=== PATIENT | female | born 1960 | race Caucasian/White ===

== ENCOUNTER → 2018-06-22 | Outpatient (CLI) | payer OTHER | LOC: M.RAD 06-18 16:00 | DX: Z12.31 Encounter for screening mammogram for malignant neoplasm of breast (principal) ==

== ENCOUNTER → 2020-08-09 | Outpatient (CLI) | payer OTHER | LOC: M.RAD 07:21 | PROVIDERS: ATTEND Hospitalist | DX: Z12.31 Encounter for screening mammogram for malignant neoplasm of breast (principal) ==

== ENCOUNTER 2021-03-05 07:17 | Observation (INO) | payer OTHER ==
[~2021-03-05] VITALS: Ht 165.1 cm; Wt 137.9 kg
[2021-03-05] VITALS (7 sets, daily range): BP systolic 107–194; BP diastolic 42–135
[2021-03-05] MEDS ORDERED: CHLORTHALIDONE25 MG PO (07:31)
[2021-03-05] MEDS ORDERED: ASA81BEC PO (07:31)
[2021-03-05] MEDS ORDERED: CARVEDILOL12.5 MG PO (07:31)
[2021-03-05] MEDS ORDERED: ALPRAZOLAM XR3 MG PO (07:31)
[2021-03-05] MEDS ORDERED: FLEXERIL PO (07:32)
[2021-03-05] MEDS ORDERED: PLAVIX 75 MG TA75 MG PO (07:32)
[2021-03-05] MEDS ORDERED: SUPER THERAVIT1 EACH PO (07:33)
[2021-03-05] MEDS ORDERED: METFORMIN HCL500 M3 PO (07:33)
[2021-03-05] MEDS ORDERED: ESCITALOPRA5 MG/5 ML PO (07:33)
[2021-03-05] MEDS ORDERED: LEVO-T75 MCG PO (07:33)
[2021-03-05] MEDS ORDERED: NITROSTAT0.4 M1 SUBLING (07:34)
[2021-03-05] MEDS ORDERED: PRAVACHOL 20 MG20 M1 PO ×2 (07:34→16:55)
[2021-03-05] MEDS ORDERED: PROTONIX40 M2 PO (07:34)
[2021-03-05 07:47] LABS: ABSOLUTE BASOPHILS 0.1 thou/uL (0.0-0.2); ABSOLUTE EOSINOPHILS 0.1 thou/uL (0.0-0.7); ABSOLUTE LYMPHOCYTES 1.8 thou/uL (0.8-5.3); ABSOLUTE MONOCYTES 0.4 thou/uL (0.0-1.2); ABSOLUTE NEUTROPHILS 3.5 thou/uL (1.6-8.1); BASOPHILS 1.2 %; EOSINOPHILS 1.1 %; HEMATOCRIT 40.4 % (37.0-47.0); HEMOGLOBIN 13.2 gm/dL (12.0-15.0); LYMPHOCYTES 31.3 %; MCH 27.9 pg (26.0-34.0); MCHC 32.7 g/dL (28.0-37.0); MCV 85.4 fL (80.0-100.0); MPV 8.3 fl. (7.2-11.1); NUCLEATED RBCS 0 /100WBC; PLATELET COUNT* 243 thou/uL (150-400); POLYS 60.4 %; RBC 4.72 mil/uL (4.20-5.00); RDW-CV 13.9 % (10.5-14.5); WBC 5.8 thou/uL (4.0-11.0)
[2021-03-05 07:52] LABS: CALCIUM 8.6 mg/dL (8.5-10.1); POTASSIUM 3.3 mmol/L (3.5-5.1)
[2021-03-05 08:01] LABS: ALBUMIN 3.7 g/dL (3.4-5.0); MAGNESIUM 1.4 mg/dL (1.8-2.4); TOTAL BILIRUBIN 0.6 mg/dL (<0.1-1.0)
--- NOTE | 2021-03-05 10:37 | EKG ---
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[place] : 1960 Requested By: Huan José Order Number: [id number] MD: Raul Blandon Measurements Intervals [place] Rate: 75 P: 29 AK: 146 QRS: -32 QRSD: 92 T: 12 QT: 387 QTc: 433 Interpretive Statements Sinus rhythm Atrial premature complex Left axis deviation Low voltage, precordial leads Borderline T abnormalities, inferior leads No previous ECG available for comparison Electronically Signed On 03-05-2021 10:37:43 CDT by Raul Blandon [email or web address] <ELECTRONICALLY SIGNED> By: Raul Blandon MD, FACC 03/05/21 1037 7 7 Raul Blandon MD, [facility] /EPI
--- NOTE | 2021-03-05 10:40 | EKG ---
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 <ELECTRONICALLY SIGNED> By: Raul Blandon MD, FACC 03/05/21 1040 0937 Raul Blandon MD, FACC /EPI
[2021-03-05 13:32] LABS: CHOLESTEROL 157 mg/dL (<200); HDL CHOLESTEROL 39 mg/dL (>40); LDL CHOLESTEROL 68 mg/dL (<100); SERUM ASSESSMENT Clear; TRIGLYCERIDE 251 mg/dL (<150); VLDL 50 mg/dL (<40)
--- NOTE | 2021-03-05 15:18 | 2DMMODE ---
[place] [address] 2 D/M-MODE ECHOCARDIOGRAM Name: ELLA SANTIZO Room: [address] Oren#: [id number] Admission: 03/05/21 Attend Phys: Bruce Garcia Discharge: Date of : 62 Date of Service: 03/05/21 1517 Report #: [id number] THIS REPORT FOR: cc: Anuja Tidwell MD, Jayne Lora MD Holkins,Raul Benedict MD [facility] ~ APPROVED REPORT Study performed: 03/05/2021 14:33:15 EXAM: Comprehensive 2D, Doppler, and color-flow Echocardiogram Patient Location: In-Patient Room #: er Status: routine BSA: 2.35 HR: 78 bpm BP: 129/62 mmHg Rhythm: NSR Other Information Study Quality: Good Indications CAD 2D Dimensions IVSd: 11.65 (7-11mm) LVOT Diam: 19.14 (18-24mm) LVDd: 39.70 mm PWd: 12.03 (7-11mm) Ascending Ao: 34.95 (22-36mm) LVDs: 23.26 (25-40mm) Aortic Root: 30.91 mm Volumes Left Atrial Volume (Systole) LA ESV Index: 14.60 mL/m2 Aortic Valve AoV Peak Ishmael.: 1.55 m/s AO Peak Gr.: 9.64 mmHg LVOT Max P.56 mmHg AO Mean Gr.: 5.80 mmHg LVOT Mean P.63 mmHg LVOT Max V: 1.18 m/s AO V2 VTI: 30.09 cm LVOT Mean V: 0.74 m/s GUZMAN (VTI): 2.24 cm2 LVOT V1 VTI: 23.46 [place] [address] 2 D/M-MODE ECHOCARDIOGRAM Name: ELLA SANTIZO Room: [address] M.RMisael#: [id number] Admission: 03/05/21 Attend Phys: Bruce Garcia Discharge: Date of : 62 Date of Service: 03/05/21 1517 Report #: [id number] Mitral Valve E/A Ratio: 0.70 MV Decel. Time: 316.90 ms MV E Max Ishmael.: 0.50 m/s MV PHT: 91.90 ms MVA (PHT): 2.39 cm2 TDI E/Lateral E': 5.00 E/Medial E': 5.56 Medial E' Ishmael.: 0.09 m/s Lateral E' Ishmael.: 0.10 m/s Pulmonary Valve PV Peak Ishmael.: 1.03 m/s PV Peak Gr.: 4.27 mmHg Tricuspid Valve RAP Estimate: 5.00 mmHg TR Peak Gr.: 23.66 mmHg RVSP: 28.00 mmHg PA Pressure: 28.00 mmHg Left Ventricle The left ventricle is normal size. There is normal LV segmental wall motion. Mild concentric left ventricular hypertrophy. Left ventricular systolic function is normal. The left ventricular ejection fraction is within the normal range. LVEF is 60-65%. Grade I - abnormal relaxation pattern. Right Ventricle The right ventricle is normal size. The right ventricular systolic function is normal. Atria The left atrium size is normal. The right atrium size is normal. Aortic Valve The aortic valve is normal in structure. No aortic regurgitation is present. There is no aortic valvular stenosis. Mitral Valve The mitral valve is normal in structure. There is no mitral valve regurgitation noted. No evidence of mitral valve stenosis. Tricuspid Valve The tricuspid valve is normal in structure. Trace tricuspid regurgitation. [place] [address] 2 D/M-MODE ECHOCARDIOGRAM Name: ELLA SANTIZO Room: [address] M.R.#: [id number] Admission: 03/05/21 Attend Phys: Bruce Garcia Discharge: Date of : 62 Date of Service: 03/05/21 1517 Report #: [id number] Pulmonic Valve The pulmonary valve is normal in structure. There is no pulmonic valvular regurgitation. Great Vessels The aortic root is normal in size. IVC is not well visualized. Pericardium There is no pericardial effusion. <Conclusion> The left ventricle is normal size. Mild concentric left ventricular hypertrophy. Left ventricular systolic function is normal. The left ventricular ejection fraction is within the normal range. LVEF is 60-65%. Grade I - abnormal relaxation pattern. The right ventricle is normal size. The left atrium size is normal. The aortic valve is normal in structure. The mitral valve is normal in structure. The tricuspid valve is normal in structure. There is no pericardial effusion. There is normal LV segmental wall motion. <ELECTRONICALLY SIGNED> By: Raul Blandon MD, FACC 03/05/21 1517 151 151 Raul Blandon MD, FACC /INF
[2021-03-05] MEDS ORDERED: VITAMIN D3-ALO1 EACH PO (16:52)
[2021-03-05] MEDS ORDERED: CHOLEST OFF450 MG PO (16:53)
[2021-03-06 04:03] LABS: ABSOLUTE EOSINOPHILS 0.1 thou/uL (0.0-0.7); ABSOLUTE LYMPHOCYTES 3.2 thou/uL (0.8-5.3); ABSOLUTE MONOCYTES 0.4 thou/uL (0.0-1.2); ABSOLUTE NEUTROPHILS 2.8 thou/uL (1.6-8.1); BASOPHILS 0.6 %; EOSINOPHILS 1.1 %; HEMATOCRIT 40.9 % (37.0-47.0); HEMOGLOBIN 13.3 gm/dL (12.0-15.0); LYMPHOCYTES 49.5 %; MCH 27.9 pg (26.0-34.0); MCHC 32.6 g/dL (28.0-37.0); MCV 85.6 fL (80.0-100.0); MONOCYTES 6.4 %; MPV 8.3 fl. (7.2-11.1); NUCLEATED RBCS 0 /100WBC; PLATELET COUNT* 261 thou/uL (150-400); POLYS 42.4 %; RBC 4.78 mil/uL (4.20-5.00); RDW-CV 14.3 % (10.5-14.5); WBC 6.6 thou/uL (4.0-11.0)
[2021-03-06 04:12] VITALS: BP 121/68
[2021-03-06 04:14] LABS: POTASSIUM 3.1 mmol/L (3.5-5.1)
[2021-03-06 04:17] LABS: CREATININE 0.9 mg/dL (0.6-1.3)
[2021-03-06 09:02] VITALS: BP 136/63
--- NOTE | 2021-03-06 12:28 | EKG ---
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1960 Requested By: Bruce Garcia Order Number: [id number] MD: Raul Blandon Measurements Intervals [place] Rate: 77 P: 44 [place]: 145 QRS: 1 QRSD: 89 T: 7 QT: 407 QTc: 461 Interpretive Statements Sinus rhythm Low voltage, precordial leads RSR' in V1 or V2, right VCD Borderline T abnormalities, anterior leads Baseline wander in lead(s) V3 Compared to ECG 03/05/2021 09:37:32 RSR' in V1 or V2 now present T-wave abnormality still present Electronically Signed On 03-06-2021 12:28:30 CDT by Raul Blandon [email or web address] <ELECTRONICALLY SIGNED> By: Raul Blandon MD, [facility] 03/06/21 1228 1010 1010 Raul Blandon MD, [facility] /EPI
[2021-03-06 13:00] VITALS: BP 144/48
[2021-03-06 13:06] VITALS: BP 144/48
== END 2021-03-06 13:32 | disposition home or self-care (01) ==
LOC: M.ERS 07:17 → M.TBA-ER 10:57 → M.2W 16:17
PROVIDERS: Emergency Medicine Emergency Medical Services; Registered Nurse; ADMIT Internal Medicine; ATTEND Internal Medicine
DX: R00.0 Tachycardia, unspecified (principal); Z20.822 Contact with and (suspected) exposure to COVID-19; R06.00 Dyspnea, unspecified; E87.6 Hypokalemia; E87.1 Hypo-osmolality and hyponatremia; E87.8 Other disorders of electrolyte and fluid balance, not elsewhere classified; E83.42 Hypomagnesemia; E11.65 Type 2 diabetes mellitus with hyperglycemia; I25.10 Atherosclerotic heart disease of native coronary artery without angina pectoris; I10 Essential (primary) hypertension; E78.5 Hyperlipidemia, unspecified; E78.00 Pure hypercholesterolemia, unspecified; I25.2 Old myocardial infarction; R00.2 Palpitations; E66.9 Obesity, unspecified; Z68.45 Body mass index [BMI] 70 or greater, adult; Z79.899 Other long term (current) drug therapy

== ENCOUNTER → 2021-03-21 | Outpatient (CLI) | payer OTHER ==
[~2021-03-21] MED LIST: ALPRAZOLAM XR3 MG PO; ASA81BEC PO; CARVEDILOL12.5 MG PO; CHLORTHALIDONE25 MG PO; CHOLEST OFF450 MG PO; ESCITALOPRA5 MG/5 ML PO; FLEXERIL PO; LEVO-T75 MCG PO; METFORMIN HCL500 M3 PO; NITROSTAT0.4 M1 SUBLING; PLAVIX 75 MG TA75 MG PO; PRAVACHOL 20 MG20 M1 PO; PROTONIX40 M2 PO; SUPER THERAVIT1 EACH PO; VITAMIN D3-ALO1 EACH PO
[2021-03-21 07:53] LABS: ABSOLUTE EOSINOPHILS 0.1 thou/uL (0.0-0.7); ABSOLUTE LYMPHOCYTES 1.8 thou/uL (0.8-5.3); ABSOLUTE MONOCYTES 0.4 thou/uL (0.0-1.2); ABSOLUTE NEUTROPHILS 3.3 thou/uL (1.6-8.1); BASOPHILS 0.9 %; EOSINOPHILS 1.3 %; HEMATOCRIT 40.2 % (37.0-47.0); HEMOGLOBIN 13.2 gm/dL (12.0-15.0); LYMPHOCYTES 31.7 %; MCH 28.3 pg (26.0-34.0); MCHC 32.7 g/dL (28.0-37.0); MCV 86.4 fL (80.0-100.0); MONOCYTES 7.2 %; MPV 8.2 fl. (7.2-11.1); NUCLEATED RBCS 0 /100WBC; PLATELET COUNT* 258 thou/uL (150-400); POLYS 58.9 %; RBC 4.66 mil/uL (4.20-5.00); WBC 5.6 thou/uL (4.0-11.0)
[2021-03-21 08:19] LABS: ALBUMIN 3.7 g/dL (3.4-5.0); ALKALINE PHOSPHATASE 89 U/L (46-116); ANION GAP 12 mmol/L (7-16); BUN 18 mg/dL (7-18); CALCIUM 8.9 mg/dL (8.5-10.1); CHLORIDE 95 mmol/L (98-107); CHOLESTEROL 182 mg/dL (<200); CO2 26 mmol/L (21-32); GLUCOSE 402 mg/dL (70-99); HDL CHOLESTEROL 40 mg/dL (>40); LDL CHOLESTEROL 79 mg/dL (<100); POTASSIUM 3.6 mmol/L (3.5-5.1); SGOT 41 U/L (15-37); SGPT 49 U/L (30-65); SODIUM 133 mmol/L (136-145); TC:HDL 4.6 Ratio (Not establshd); TOTAL BILIRUBIN 0.7 mg/dL (<0.1-1.0); TOTAL PROTEIN 7.3 g/dL (6.4-8.2); TRIGLYCERIDE 315 mg/dL (<150); VLDL 63 mg/dL (<40)
[2021-03-21 08:20] LABS: SERUM ASSESSMENT Clear
[2021-03-21 17:18] LABS: MAGNESIUM 1.6 mg/dL (1.8-2.4)
[2021-03-22 02:06] LABS: GLYCOHEMOGLOBIN (HGB A1C) 13.8 % (4.8-5.6)
== END ==
LOC: M.LAB 07:29
PROVIDERS: ATTEND Specialist
DX: I10 Essential (primary) hypertension (principal); E87.6 Hypokalemia; E11.9 Type 2 diabetes mellitus without complications; E55.9 Vitamin D deficiency, unspecified; E53.8 Deficiency of other specified B group vitamins; R79.0 Abnormal level of blood mineral

== ENCOUNTER → 2021-04-06 | Outpatient (CLI) | payer OTHER ==
[2021-04-06 08:08] LABS: ALBUMIN 3.6 g/dL (3.4-5.0); CALCIUM 8.7 mg/dL (8.5-10.1); TOTAL BILIRUBIN 0.7 mg/dL (<0.1-1.0); TOTAL PROTEIN 7.1 g/dL (6.4-8.2)
== END ==
LOC: M.LAB 07:28
PROVIDERS: ATTEND Specialist
DX: E11.9 Type 2 diabetes mellitus without complications (principal); E87.1 Hypo-osmolality and hyponatremia; E83.42 Hypomagnesemia

== ENCOUNTER 2021-04-22 09:31 | Emergency (ER) | payer OTHER ==
[~2021-04-22] VITALS: Ht 165.1 cm; Wt 131.5 kg
[2021-04-22] MEDS ORDERED: TRULICITY0.75 MG/0. (09:56)
[2021-04-22] MEDS ORDERED: FARXIGA5 MG PO (09:56)
[2021-04-22 11:35] VITALS: BP 144/72
== END 2021-04-22 11:35 | disposition home or self-care (01) ==
LOC: M.ERS 09:31
DX: H53.8 Other visual disturbances (principal); I25.2 Old myocardial infarction; E11.9 Type 2 diabetes mellitus without complications; I10 Essential (primary) hypertension; E78.00 Pure hypercholesterolemia, unspecified; Z90.89 Acquired absence of other organs; Z95.5 Presence of coronary angioplasty implant and graft; Z79.899 Other long term (current) drug therapy; Z79.82 Long term (current) use of aspirin; Z88.0 Allergy status to penicillin; Z88.6 Allergy status to analgesic agent

== ENCOUNTER 2021-06-28 11:21 | Emergency (ER) | payer OTHER ==
[~2021-06-28] VITALS: Ht 165.1 cm; Wt 127.0 kg
[~2021-06-28 11:21] MED LIST changes: +FARXIGA5 MG PO; +TRULICITY0.75 MG/0.
[2021-06-28 12:39] LABS: ABSOLUTE LYMPHOCYTES 1.1 thou/uL (0.8-5.3); ABSOLUTE MONOCYTES 0.4 thou/uL (0.0-1.2); ABSOLUTE NEUTROPHILS 3.4 thou/uL (1.6-8.1); BASOPHILS 0.7 %; EOSINOPHILS 0.2 %; HEMOGLOBIN 13.3 gm/dL (12.0-15.0); LYMPHOCYTES 22.4 %; MCHC 32.4 g/dL (28.0-37.0); MCV 86.4 fL (80.0-100.0); MONOCYTES 8.7 %; MPV 7.9 fl. (7.2-11.1); NUCLEATED RBCS 0 /100WBC; PLATELET COUNT* 262 thou/uL (150-400); RBC 4.74 mil/uL (4.20-5.00); RDW-CV 13.8 % (10.5-14.5)
[2021-06-28 12:50] LABS: INFLUENZA A ANTIGEN Negative (Negative); INFLUENZA B ANTIGEN Negative (Negative)
[2021-06-28 13:43] VITALS: BP 140/60
--- NOTE | 2021-06-28 16:16 | EKG ---
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 : 1960 Requested By: Darryn Morales Order Number: [id number] MD: Raul Blandon Measurements Intervals [place] Rate: 71 P: 22 AK: 148 QRS: -17 QRSD: 104 T: 13 QT: 406 QTc: 442 Interpretive Statements Sinus rhythm Borderline left axis deviation Low voltage, precordial leads Borderline T abnormalities, anterior leads Baseline wander in lead(s) II,aVR,aVF,V6 Compared to ECG 03/06/2021 10:10:36 No significant changes Electronically Signed On 06-28-2021 16:15:48 [email or web address] by Raul Blandon [email or web address] <ELECTRONICALLY SIGNED> By: Raul Blandon MD, [facility] 06/28/21 1615 1137 1137 Raul Blandon MD, [facility] /EPI
[2021-06-28 23:28] LABS: CALCIUM 8.6 mg/dL (8.5-10.1); CREATININE 1.1 mg/dL (0.6-1.3)
[2021-06-28 23:33] LABS: ALBUMIN 3.9 g/dL (3.4-5.0); TOTAL BILIRUBIN 0.3 mg/dL (<0.1-1.0)
== END 2021-06-28 13:44 | disposition home or self-care (01) ==
LOC: M.ERS 11:21
PROVIDERS: Emergency Medicine
DX: U07.1 COVID-19 (principal); I25.2 Old myocardial infarction; E11.9 Type 2 diabetes mellitus without complications; I10 Essential (primary) hypertension; E78.00 Pure hypercholesterolemia, unspecified; Z90.89 Acquired absence of other organs; Z79.82 Long term (current) use of aspirin; Z79.84 Long term (current) use of oral hypoglycemic drugs; Z79.899 Other long term (current) drug therapy; Z79.891 Long term (current) use of opiate analgesic; Z88.0 Allergy status to penicillin; Z88.8 Allergy status to other drugs, medicaments and biological substances

== ENCOUNTER 2021-07-05 14:44 | Inpatient (IN) | payer OTHER ==
[~2021-07-05] VITALS: Ht 165.1 cm; Wt 126.6 kg
[2021-07-05 14:48] VITALS: BP 118/79
[2021-07-05 17:46] LABS: HEMOGLOBIN 14.8 gm/dL (12.0-15.0); MCH 27.9 pg (26.0-34.0); RBC 5.31 mil/uL (4.20-5.00); RDW-CV 13.8 % (10.5-14.5)
[2021-07-05 17:48] LABS: HEMATOCRIT 45.7 % (37.0-47.0); MCHC 32.5 g/dL (28.0-37.0); MPV 8.4 fl. (7.2-11.1); NUCLEATED RBCS 0 /100WBC; WBC 6.3 thou/uL (4.0-11.0)
[2021-07-05 18:14] LABS: ABSOLUTE LYMPHOCYTES 1.3 thou/uL (0.8-5.3); ABSOLUTE MONOCYTES 0.5 thou/uL (0.0-1.2); ABSOLUTE NEUTROPHILS 4.5 thou/uL (1.6-8.1); PLATELET ESTIMATE ADEQUATE
[2021-07-05 18:15] LABS: PLATELET COUNT* 200 thou/uL (150-400)
[2021-07-05 19:28] LABS: CALCIUM 7.7 mg/dL (8.5-10.1); CREATININE 0.9 mg/dL (0.6-1.3)
[2021-07-05 19:30] LABS: POTASSIUM 2.4 mmol/L (3.5-5.1)
[2021-07-05 19:34] LABS: MAGNESIUM 1.5 mg/dL (1.8-2.4); TOTAL BILIRUBIN 0.6 mg/dL (<0.1-1.0); TOTAL PROTEIN 6.7 g/dL (6.4-8.2)
[2021-07-05 23:50] LABS: URINE BILIRUBIN NEGATIVE (Negative); URINE BLOOD NEGATIVE (Negative); URINE CLARITY CLEAR; URINE COLOR YELLOW; URINE GLUCOSE-RANDOM 1+ (Negative); URINE KETONES NEGATIVE (Negative); URINE LEUKOCYTES-REFLEX 1+ (Negative); URINE NITRITE-REFLEX NEGATIVE (Negative); URINE PROTEIN NEGATIVE (Negative); URINE SPECIFIC GRAVITY <= 1.005 (1.005-1.030); URINE UROBILINOGEN 0.2 E.U./dl (0.2-1.0)
[2021-07-06] VITALS (7 sets, daily range): BP systolic 113–219; BP diastolic 71–94
[2021-07-06 00:03] LABS: BACTERIA-REFLEX >30 Many /HPF (None Seen); CASTS None Seen /LPF (None Seen); CRYSTALS None Seen /LPF (None Seen); MUCUS 4-6 Moderate strn/LPF (None Seen); SQUAMOUS 0-3 Few /LPF (0-3); URINE RBC 3-10 Few /HPF (0-2); URINE WBC-REFLEX >25 Many /HPF (0-5)
[2021-07-06 06:57] LABS: POTASSIUM 2.7 mmol/L (3.5-5.1)
--- NOTE | 2021-07-06 09:37 | EKG ---
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 : 1960 Requested By: Mani Rizo Order Number: [id number] MD: Fazal Andersen Measurements Intervals [place] Rate: 80 P: 18 TN: 143 QRS: -24 QRSD: 96 T: 11 QT: 409 QTc: 472 Interpretive Statements Sinus rhythm Borderline left axis deviation Low voltage, precordial leads Abnormal R-wave progression, early transition Compared to ECG 06/28/2021 11:37:45 no change Electronically Signed On 07-06-2021 9:36:55 GRADUATE ADVISOR by Fazal Andersen [email or web address] <ELECTRONICALLY SIGNED> By: Fazal Andersen MD, FAC 07/06/21 0936 1453 1453 Fazal Andersen MD, FAC /EPI
[2021-07-07] VITALS (7 sets, daily range): BP systolic 121–140; BP diastolic 64–77
[2021-07-07 04:02] LABS: ALBUMIN 2.6 g/dL (3.4-5.0); CALCIUM 7.4 mg/dL (8.5-10.1); CREATININE 0.8 mg/dL (0.6-1.3); TOTAL BILIRUBIN 0.4 mg/dL (<0.1-1.0); TOTAL PROTEIN 5.9 g/dL (6.4-8.2)
[2021-07-07] MEDS ORDERED: PREDNISONE 10 M10 MG PO (14:10)
[2021-07-07] MEDS ORDERED: TESSALON PERLE100 MG PO (14:10)
[2021-07-07] MEDS ORDERED: PROAIR HFA8.5 GM INH (14:10)
[2021-07-07] MEDS ORDERED: LEVOFLOXACIN500 MG PO (14:10)
== END 2021-07-07 17:30 | disposition home or self-care (01) | DRG 177 ==
LOC: M.ERS 14:44 → M.TBA-ER 20:59 → M.ORTHSURG 20:59
PROVIDERS: Internal Medicine; Physician Assistant Medical; ADMIT Internal Medicine; ATTEND Internal Medicine
DX: U07.1 COVID-19 (principal); J12.82 Pneumonia due to coronavirus disease 2019; N17.9 Acute kidney failure, unspecified; E78.00 Pure hypercholesterolemia, unspecified; E11.9 Type 2 diabetes mellitus without complications; E87.6 Hypokalemia; E86.0 Dehydration; K52.9 Noninfective gastroenteritis and colitis, unspecified; I25.2 Old myocardial infarction; Z95.5 Presence of coronary angioplasty implant and graft; Z88.6 Allergy status to analgesic agent; Z88.0 Allergy status to penicillin; Z87.891 Personal history of nicotine dependence; Z83.3 Family history of diabetes mellitus; Z82.49 Family history of ischemic heart disease and other diseases of the circulatory system

== ENCOUNTER → 2021-07-16 | Outpatient (CLI) | payer OTHER ==
[~2021-07-16] MED LIST changes: +LEVOFLOXACIN500 MG PO; +PREDNISONE 10 M10 MG PO; +PROAIR HFA8.5 GM INH; +TESSALON PERLE100 MG PO
[2021-07-16 11:15] LABS: HEMATOCRIT 40.4 % (37.0-47.0); MCH 27.5 pg (26.0-34.0); MCHC 32.1 g/dL (28.0-37.0); MCV 85.5 fL (80.0-100.0); RBC 4.72 mil/uL (4.20-5.00); RDW-CV 13.9 % (10.5-14.5); WBC 9.9 thou/uL (4.0-11.0)
[2021-07-16 11:28] LABS: ALBUMIN 3.1 g/dL (3.4-5.0); CALCIUM 8.7 mg/dL (8.5-10.1); CREATININE 1.1 mg/dL (0.6-1.3); MAGNESIUM 1.6 mg/dL (1.8-2.4); POTASSIUM 3.1 mmol/L (3.5-5.1); TOTAL BILIRUBIN 0.8 mg/dL (<0.1-1.0); TOTAL PROTEIN 6.7 g/dL (6.4-8.2)
== END ==
LOC: M.LAB 10:40
PROVIDERS: ATTEND Specialist
DX: E87.6 Hypokalemia (principal); I10 Essential (primary) hypertension; E11.9 Type 2 diabetes mellitus without complications; E83.42 Hypomagnesemia; R19.7 Diarrhea, unspecified; Z86.16 Personal history of COVID-19

== ENCOUNTER → 2021-07-24 | Outpatient (CLI) | payer OTHER ==
[2021-07-24 13:48] LABS: ALBUMIN 3.7 g/dL (3.4-5.0); CALCIUM 9.1 mg/dL (8.5-10.1); CREATININE 0.9 mg/dL (0.6-1.3); MAGNESIUM 1.4 mg/dL (1.8-2.4); POTASSIUM 3.8 mmol/L (3.5-5.1); TOTAL BILIRUBIN 0.6 mg/dL (<0.1-1.0)
== END ==
LOC: M.LAB 12:28
PROVIDERS: ATTEND Specialist
DX: E87.8 Other disorders of electrolyte and fluid balance, not elsewhere classified (principal); E83.42 Hypomagnesemia